=== PATIENT | male | born 1940 | race Caucasian/White ===

== ENCOUNTER → 2018-05-06 | Outpatient (CLI) | payer OTHER ==
[~2018-05-06] MED LIST: COMBIGAN EYE DR10 ML OP; LIPITOR 20 MG T20 M1 PO; LUMIGAN2.5 M1 OP; MEDROLDOSEPACK PO; ZOCOR20 MG PO
== END ==
LOC: CAT 12:27
DX: Z13.6 Encounter for screening for cardiovascular disorders (principal); E78.00 Pure hypercholesterolemia, unspecified; Z82.49 Family history of ischemic heart disease and other diseases of the circulatory system

== ENCOUNTER → 2018-08-06 | Outpatient (CLI) | payer OTHER ==
--- NOTE | 2018-08-06 10:39 | EXE ---
[facility] [place] [address] STRESS ECHOCARDIOGRAM Name: DONALD HUIAINE Alfredo Room #: ALANIS MarlowDrewFreddyDrew#: [id number] ������������� Admission: 08/06/18 ������������� Attend Phys: Mario Workman, Discharge: ��� ������������� ��� Date of : 36 Date of Service: 08/06/18 1039 �� Report #: [id number] �������� ��������������������������������������������[id number] THIS REPORT FOR: //name// APPROVED REPORT Study performed: 08/06/2018 08:02:38 Exam: Stress Echocardiogram Indication: Elevated calcium score, LBBB Patient Location: Out-Patient Stress Nurse: Berta Sheth RN Status: routine Ht: 6 ft 1 in HR: 67 bpm BP: 140/90 mmHg Medical History Medications: Simvastatin Allergies: No known drug allergies Cardiac Risk Factors: Hyperlipidemia Procedure The patient underwent an Exercise Stress Test using the Jon Protocol. Blood pressure, heart rate, and EKG were monitored. An Echocardiogram was performed by product development technician in four stages in quad fashion. At peak stress, four selected images were obtained and placed side by side with resting images for comparison. Stress Test Details Stress Test: Exercise stress testing was performed using a Jon protocol. HR Resting HR: 67 bpm Max Heart Rate (APMHR): 140 bpm Max HR Achieved: 131 bpm Target HR (85% APMHR): 119 bpm % of APMHR: 93 Recovery HR: 84 bpm HR response to stress: Normal HR response to stress BP Resting BP: 140/90 mmHg Max BP: 200/90 mmHg Recovery BP: 160/90 mmHg BP response to stress: Normal blood pressure response to stress. ECG [facility] [address] [place] [address] STRESS ECHOCARDIOGRAM Name: EZLUCINA VALDEZ Alfredo Room #: [facility] KashmirDrewFreddyDrew#: [id number] ������������� Admission: 08/06/18 ������������� Attend Phys: Mario Workman, Discharge: ��� ������������� ��� Date of : 36 Date of Service: 08/06/18 1039 �� Report #: [id number] �������� ��������������������������������������������[id number] Resting ECG: LBBB Clinical Reason for Termination: Maximal effort, right knee pain Stress Symptoms: Knee pain Exercise duration: 2 min 33 sec Highest Stage Achieved: Stage 1: 1.7 mph at 10% grade. Exercise capacity: 4.8 METs Pre-Stress Echo The resting Echocardiogram showed normal left ventricular contractility with an estimated Ejection Fraction of about 50%. Mild to moderate MR, mild TR. Paradoxical septal motion due to conduction abnormality. Post-Stress Echo The stress Echocardiogram showed normal left ventricular contractility with an estimated Ejection Fraction of about 50-55%. Other Information Study Quality: Adequate ��������������������������������������������� <ELECTRONICALLY SIGNED> ���������������������������������������� By: Mario Workman MD, [facility] ��������������������������������������������� 08/06/18 1039 1039 1039 Mario Workman MD, FACC /INF
== END ==
LOC: CV 07:31 → ULTRA 09:30 → CV 09:36
DX: I65.23 Occlusion and stenosis of bilateral carotid arteries (principal); E78.5 Hyperlipidemia, unspecified; I44.7 Left bundle-branch block, unspecified

== ENCOUNTER → 2019-06-11 | Outpatient (CLI) | payer OTHER ==
[~2019-06-11] MED LIST changes: +ASA81BEC PO; +BISOPROLOL FUMAR5 MG PO; +BUPROPION HCL100 MG PO; +BUPROPION XL300 MG PO; +CALCIUM CARBON200 M1 PO; +ELIQUIS5 MG PO; +RAYOS5 MG PO
== END ==
LOC: SJCVC 13:31
DX: I44.7 Left bundle-branch block, unspecified (principal); R94.31 Abnormal electrocardiogram [ECG] [EKG]; I48.91 Unspecified atrial fibrillation; R93.1 Abnormal findings on diagnostic imaging of heart and coronary circulation; E78.5 Hyperlipidemia, unspecified; D68.59 Other primary thrombophilia; I65.23 Occlusion and stenosis of bilateral carotid arteries; I10 Essential (primary) hypertension; Z87.891 Personal history of nicotine dependence; Z79.899 Other long term (current) drug therapy; Z79.82 Long term (current) use of aspirin

== ENCOUNTER → 2019-06-12 | Outpatient (CLI) | payer OTHER ==
[~2019-06-12] MED LIST changes: -ASA81BEC PO; -BISOPROLOL FUMAR5 MG PO; -BUPROPION HCL100 MG PO; -BUPROPION XL300 MG PO; -CALCIUM CARBON200 M1 PO; -ELIQUIS5 MG PO; -RAYOS5 MG PO
== END ==
LOC: SJCVCIMAG 08:59
DX: I34.0 Nonrheumatic mitral (valve) insufficiency (principal); R93.1 Abnormal findings on diagnostic imaging of heart and coronary circulation; I48.91 Unspecified atrial fibrillation

== ENCOUNTER → 2019-06-15 | Outpatient (CLI) | payer OTHER | LOC: SJCVCIMAG 07:58 | DX: I25.89 Other forms of chronic ischemic heart disease (principal); I48.91 Unspecified atrial fibrillation; I25.10 Atherosclerotic heart disease of native coronary artery without angina pectoris; Z79.899 Other long term (current) drug therapy; Z86.73 Personal history of transient ischemic attack (TIA), and cerebral infarction without residual deficits; Z87.891 Personal history of nicotine dependence ==

== ENCOUNTER → 2019-06-23 | Outpatient (CLI) | payer OTHER ==
[~2019-06-23] VITALS: Ht 185.4 cm; Wt 98.0 kg
[~2019-06-23] MED LIST changes: +ASA81BEC PO; +BISOPROLOL FUMAR5 MG PO; +BUPROPION HCL100 MG PO; +BUPROPION XL300 MG PO; +CALCIUM CARBON200 M1 PO; +ELIQUIS5 MG PO; +RAYOS5 MG PO
[2019-06-23 07:36] LABS: HEMATOCRIT 42.9 % (42.0-52.0); HEMOGLOBIN 14.1 gm/dL (14.0-18.0); MCH 31.1 pg (26.0-34.0); MCHC 32.9 g/dL (28.0-37.0); MCV 94.6 fL (80.0-100.0); RBC 4.53 mil/uL (4.50-6.00); RDW 14.8 % (10.5-14.5); WBC 6.4 thou/uL (4.0-11.0)
[2019-06-23 07:38] VITALS: BP 119/68
[2019-06-23 07:43] LABS: CALCIUM 9.7 mg/dL (8.5-10.1); POTASSIUM 4.4 mmol/L (3.5-5.1)
--- NOTE | 2019-06-23 08:29 | EKG ---
[facility] [place] [address] ELECTROCARDIOGRAM REPORT Name: EZLUCINA Alfredo Room #: [facility]#: [id number] Admission: 06/23/19 Attend Phys: Mario Workman MD, Discharge: Date of : 36 Report #: [id number] THIS REPORT FOR: cc: Roni Harmon MD [facility] FACE Roni Harmon MD FAA FACE Mando Theodore MD [facility] THIS REPORT FOR: //name// [facility] Test Date: 2019-06-23 Test Time: 07:25:08 Pat Name: LUCINA HUI Department: Room: Gender: Bi Developer: [facility] : 1940 Requested By: Mario Workman Order Number: [id number] MD: Mando Theodore Measurements Intervals [place] Rate: 58 P: 45 [place]: 172 QRS: -16 QRSD: 154 T: 162 QT: 433 QTc: 426 Interpretive Statements Sinus bradycardia Left bundle branch block Compared to ECG 12/19/2014 23:46:58 No significant changes Electronically Signed On 06-23-2019 8:28:23 CDT by Mando Theodore [email or web address] <ELECTRONICALLY SIGNED> By: Mando Theodore MD, [facility] 06/23/19 0828 4 Mando Theodore MD, [facility] /EPI
--- NOTE | 2019-06-23 12:52 | CATHLAB ---
[facility] [address] [place] [address] INVASIVE PROCEDURE REPORT Name: LUCINA HUI Room #: ALANIS DumontDrew#: [id number] Admission: 06/23/19 Attend Phys: Mario Workman MD, Discharge: Date of : 36 Report #: [id number] THIS REPORT FOR: cc: Roni Harmon MD, FAAFP FACE Roni Harmon MD FAA FACE Mario Workman MD [facility] ~ APPROVED REPORT Study performed: 06/23/2019 09:13:34 Patient Details Patient Status: Out-Patient Room #: The patient is a 79 year-old male Event Personnel Mario Workman Power Operator, Kayla Rome RN RN, Orlin Glass RTR Shravan Mccloud Sherra RTR Monitor, Kaela Meng Laboratory Equipment Cleaner, Naa Liz RTR, CELINE Laboratory Equipment Cleaner Procedures Performed Art Access - R femoral artery* Left Heart Cath w/or w/o Coronaries [id number] [facility] FFR 5260086 FFR Aortogram Abdominal Peripheral Angio 570334 74200 Initial Mod Sed Same Phys/QHP Gr5y 115011 55231 Mod Sed Same Phys/QHP Ea 363766 Hemostasis w/ Mynx Indication Chest pain Procedure Narrative The Right Groin^ was infiltrated with 1% Lidocaine subcutaneous anesthesia. A PINNACLE 6FR Sheath #[id number] sheath was inserted into the RFA^. Coronary angiography was performed using coronary diagnostic catheters. The right coronary system was accessed and visualized with a JR4 catheter. The left coronary system was accessed and visualized with a JL4 catheter. The left ventricle was accessed and visualized with a PIGTAIL catheter. Left ventriculogram was performed in 30 degree projection. An aortogram of the abdominal aorta was performed. Closure device was deployed with a 6 Fr MYNXGRIP 6/7F #[id number]. The patient tolerated the procedure well and there were no complications associated with the procedure. There was no hematoma. FFR .92 Intraoperative Conscious Sedation Sedation start time: 953 Case end Time: 1041 [facility] [address] [place] [address] INVASIVE PROCEDURE REPORT Name: EZLUCINA Alfredo Room #: [facility]#: [id number] Admission: 06/23/19 Attend Phys: Mario Workman, Discharge: Date of : 36 Report #: [id number] Fentanyl 100 mcg Versed 2 mg Fluoro Time: 5.25 minutes Dose: DAP 6406.70 cGycm2 791 mGy Contrast Type and Amount: Omnipaque 150 ml Hemodynamics The aortic pressure is 122/55 mmHg with a mean of 71 mmHg. The left ventricular pressure is 129/8 mmHg with a mean of mmHg. The left ventricular end diastolic pressure is 24 mmHg. Conclusion #1. Normal left ventricular size and systolic function EF 55%. #2 abdominal aortogram revealing no evidence of aneurysm bilateral renal arteries are mildly diseased. Brisk flow. #3 left main with mild disease giving rise to LAD and circumflex #4 the LAD is proximal calcification 30% irregularity and then a mid vessel eccentric lesion of 70 to 75% at a second diagonal takeoff. The stent extends around the apex mildly diseased. FFR performed of this mid LAD lesion was 0.92 we will continue to treat medically. #5 circumflex OM is a large dominant system or anatomically codominant but is extensive distribution with minimal irregularity. #6 a codominant RCA is smaller in caliber. The mid distal PDA essentially occludes. Although this is predominantly filled via the left system. Recommendations and plan: Continue aggressive risk factor modification. Will follow that mid LAD lesion with stress testing serially. Also looking for symptomatology. FFR not physiologically significant lesion at this time. <ELECTRONICALLY SIGNED> By: Mario Workman MD, FACC 06/23/19 1251 1251 125 Mario Workman MD, FACC /INF
== END | disposition home or self-care (01) ==
LOC: CATH 06-17 10:33
PROVIDERS: Internal Medicine Cardiovascular Disease
DX: R07.9 Chest pain, unspecified (principal); I25.10 Atherosclerotic heart disease of native coronary artery without angina pectoris; E78.5 Hyperlipidemia, unspecified; I48.91 Unspecified atrial fibrillation; I10 Essential (primary) hypertension; F32.9 Major depressive disorder, single episode, unspecified; F41.9 Anxiety disorder, unspecified; Z98.890 Other specified postprocedural states; Z79.899 Other long term (current) drug therapy; Z79.01 Long term (current) use of anticoagulants; Z79.82 Long term (current) use of aspirin

== ENCOUNTER → 2020-08-19 | Outpatient (CLI) | payer OTHER | LOC: SJCVC 09:56 | PROVIDERS: ATTEND Internal Medicine Cardiovascular Disease | DX: R94.31 Abnormal electrocardiogram [ECG] [EKG] (principal); I48.0 Paroxysmal atrial fibrillation; I44.7 Left bundle-branch block, unspecified; R93.1 Abnormal findings on diagnostic imaging of heart and coronary circulation; R53.83 Other fatigue; I25.10 Atherosclerotic heart disease of native coronary artery without angina pectoris; R68.89 Other general symptoms and signs; E78.5 Hyperlipidemia, unspecified; Z87.891 Personal history of nicotine dependence; Z72.89 Other problems related to lifestyle; Z79.899 Other long term (current) drug therapy ==

== ENCOUNTER 2020-11-20 07:48 | Inpatient (IN) | payer OTHER ==
[~2020-11-20] VITALS: Ht 185.4 cm; Wt 92.9 kg
[2020-11-20 07:51] VITALS: BP 135/93
[2020-11-20 08:15] LABS: HEMATOCRIT 40.8 % (42.0-52.0); HEMOGLOBIN 13.4 gm/dL (14.0-18.0); MCH 31.4 pg (26.0-34.0); MCHC 32.9 g/dL (28.0-37.0); MCV 95.5 fL (80.0-100.0); PLATELET COUNT 167 thou/uL (150-400); RBC 4.27 mil/uL (4.50-6.00); RDW 22.1 % (10.5-14.5); WBC 7.9 thou/uL (4.0-11.0)
[2020-11-20 08:30] LABS: APTT 25.5 Seconds (24.5-32.8); INR 1.04; PROTIME 11.3 Seconds (10.5-12.1)
[2020-11-20 08:42] LABS: ABSOLUTE NEUTROPHILS 5.9 thou/uL (1.4-8.2); ANISOCYTOSIS 2+; PLATELET ESTIMATE NORMAL
[2020-11-20 08:50] LABS: CALCIUM 6.8 mg/dL (8.5-10.1); CREATININE 1.2 mg/dL (0.7-1.3); POTASSIUM 3.8 mmol/L (3.5-5.1)
[2020-11-20 09:00] LABS: ALBUMIN 2.5 g/dL (3.4-5.0); TOTAL BILIRUBIN 0.4 mg/dL (0.2-1.0)
[2020-11-20 11:59] VITALS: BP 94/55
[2020-11-20 12:10] VITALS: BP 125/70
[2020-11-20 12:20] LABS: URINE BILIRUBIN NEGATIVE (Negative); URINE BLOOD 3+ (Negative); URINE CLARITY CLEAR; URINE COLOR YELLOW; URINE GLUCOSE-RANDOM* NEGATIVE (Negative); URINE KETONES NEGATIVE (Negative); URINE LEUKOCYTES-REFLEX TRACE (Negative); URINE NITRITE-REFLEX NEGATIVE (Negative); URINE PROTEIN (DIPSTICK) TRACE (Negative); URINE UROBILINOGEN 0.2 E.U./dl (0.2-1.0)
[2020-11-20 12:29] VITALS: BP 105/62
[2020-11-20 12:47] LABS: SQUAMOUS 0-3 Few /LPF (0-3)
[2020-11-20 12:48] LABS: BACTERIA-REFLEX 1-9 Few /HPF (None Seen); CASTS None Seen /LPF (None Seen); CRYSTALS None Seen /LPF (None Seen); URINE RBC 3-10 Few /HPF (NONE SEEN)
--- NOTE | 2020-11-20 16:39 | NUR ---
PT ADMITTED TO ROOM THIS AM. HE IS ALERT ORIENTED X4. DENIES PAIN. RESPIRAITONS ARE NON LABORED. PLEASANT WITH CARE. ON OXYGEN VIA NC AND NO SOB NOTED. WILLC CONT WITH PLAN OF CARE.
[2020-11-20 19:44] VITALS: BP 103/64
--- NOTE | 2020-11-21 00:01 | NUR ---
PT WITH POSITIVE PCR REPORTED. PER PATIENT, HAS BEEN COVID POSITIVE IN THE PAST. THRESHOLD RAN WITH RESULT OF 36.1. PT TO REMAIN OFF ISOLATION ON 2N.
[2020-11-21 04:17] VITALS: BP 134/79
[2020-11-21 05:08] LABS: CALCIUM 7.7 mg/dL (8.5-10.1); CREATININE 1.1 mg/dL (0.7-1.3); POTASSIUM 3.9 mmol/L (3.5-5.1)
--- NOTE | 2020-11-21 07:20 | NUR ---
pt resting quietly in room thru the noc, no c/o pain, vss hr remains nsr, npo with plans for nuc. stress test today, o2 at 3l/nc, gout out break on bilat feet with reness and peeling skin, will con't to monitor per ppoc.
--- NOTE | 2020-11-21 07:29 | EKG ---
[address] [address] ELECTROCARDIOGRAM REPORT Name: LUCINA HUI Room #: 213-[facility] M.R.#: [id number] Admission: 11/20/20 Attend Phys: Mario Workman MD, Discharge: Date of : 36 Report #: [id number] [facility] ED Test Date: 2020-11-20 Test Time: 07:53:18 Pat Name: LUCINA HUI Department: Room: [facility] Gender: M Waterproofer: LUBA : 1940 Requested By: Mookie Bright Order Number: [id number] MD: Ermias Tarango Measurements Intervals [place] Rate: 170 P: 28 [place]: 112 QRS: -27 QRSD: 141 T: 146 QT: 335 QTc: 564 Interpretive Statements AFIB LBBB Compared to ECG 06/23/2019 07:25:08 Sinus bradycardia no longer present Electronically Signed On 11-21-2020 7:29:20 CDT by Ermias Tarango [email or web address] <ELECTRONICALLY SIGNED> By: Ermias Tarango MD, [facility] 11/21/20 0729 0753 0753 Ermias Tarango MD, FACC /EPI
[2020-11-21 08:00] VITALS: BP 130/82
--- NOTE | 2020-11-21 09:17 | 2DMMODE ---
[facility] [address] [place] [address] 2 D/M-MODE ECHOCARDIOGRAM Name: LUCINA HUI Room #: 213-[address] [facility] M.R.#: [id number] Admission: 11/20/20 Attend Phys: Mario Workman MD, Discharge: Date of : 36 Report #: [id number] THIS REPORT FOR: cc: Roni Harmon MD, FAAFP, FACEP, Douglas MD FAAFP FACEP Lammoglia, Francisco J. MD ~ APPROVED REPORT Study performed: 11/20/2020 09:46:12 EXAM: Comprehensive 2D, Doppler, and color-flow Echocardiogram Patient Location: Bedside Room #: ER 8 Status: on-call BSA: 2.15 HR: 71 bpm BP: 82/40 mmHg Other Information Study Quality: Technically Difficult Technically limited study due to inability to position patient. Indications Atrial Fibrillation Bradycardia CAD HLD 2D Dimensions RVDd: 29.18 mm IVSd: 13.11 (7-11mm) LVOT Diam: 20.83 (18-24mm) LVDd: 37.58 mm PWd: 12.46 (7-11mm) Ascending Ao: 37.59 (22-36mm) LVDs: 27.55 (25-40mm) Aortic Root: 36.67 mm IVC: 25.00 mm Volumes Left Atrial Volume (Systole) Single Plane 4CH: 47.67 mL Single Plane 2CH: 45.57 mL LA ESV Index: 23.00 mL/m2 Aortic Valve AoV Peak Gabe.: 1.35 m/s [facility] [address] [address] 2 D/M-MODE ECHOCARDIOGRAM Name: LUCINA HUI Room #: 213-P [facility] [place] .R.#: [id number] Admission: 11/20/20 Attend Phys: Mario Workman, Discharge: Date of : 36 Report #: [id number] AO Peak Gr.: 7.28 mmHg LVOT Max P.62 mmHg LVOT Max V: 0.81 m/s [place] Vmax: 2.04 cm2 Mitral Valve E/A Ratio: 0.8 MV Decel. Time: 260.43 ms MV E Max Gabe.: 0.90 m/s MV A Gabe.: 1.08 m/s MV PHT: 75.53 ms IVRT: 145.33 ms Pulmonary Valve PV Peak Gabe.: 0.73 m/s PV Peak Gr.: 2.12 mmHg Pulmonary Vein P Vein S: 0.63 m/s P Vein A: 0.32 m/s P Vein D: 0.40 m/s P Vein A Dur.: 117.6 msec P Vein S/D Ratio: 1.58 Tricuspid Valve TR Peak Gabe.: 2.59 m/s RAP Estimate: 15.00 mmHg TR Peak Gr.: 26.78 mmHg PA Pressure: 42.00 mmHg Left Ventricle The left ventricle is normal size. There is normal LV segmental wall motion. Mild concentric left ventricular hypertrophy. Left ventricular systolic function is borderline. LVEF is 50%. Mild diastolic dysfunction is present (impaired relaxation pattern). Right Ventricle The right ventricle is normal size. The right ventricular systolic function is normal. Atria The left atrium size is normal. The right atrium size is normal. Aortic Valve The aortic valve is normal in structure. No aortic regurgitation is present. There is no aortic valvular stenosis. Mitral Valve Mild mitral annular calcification. Mild to moderate mitral [facility] [place] [address] 2 D/M-MODE ECHOCARDIOGRAM Name: LUCINA HUI Room #: 213-P [facility] [place] .R.#: [id number] Admission: 11/20/20 Attend Phys: Mario Workman, Discharge: Date of : 36 Report #: [id number] regurgitation. No evidence of mitral valve stenosis. Tricuspid Valve The tricuspid valve is normal in structure. Moderate tricuspid regurgitation. PAP is estimated at 42 mmHg. Pulmonic Valve Pulmonic valve is not well visualized. Great Vessels The aortic root is normal in size. IVC is dilated and collapses <50% with inspiration. Pericardium There is no pericardial effusion. <Conclusion> The left ventricle is normal size. Mild concentric left ventricular hypertrophy. There is normal LV segmental wall motion. LVEF is 50%. The aortic valve is normal in structure. Mild mitral annular calcification. Mild to moderate mitral regurgitation. The tricuspid valve is normal in structure. Moderate tricuspid regurgitation. PAP is estimated at 42 mmHg. Pulmonic valve is not well visualized. The aortic root is normal in size. There is no pericardial effusion. <ELECTRONICALLY SIGNED> By: Maninder Arriola MD 11/21/20915 5 5 Maninder Arriola MD /INF
[2020-11-21 12:05] VITALS: BP 141/85
[2020-11-21 15:06] VITALS: BP 134/86
[2020-11-21 16:00] VITALS: BP 114/62
--- NOTE | 2020-11-21 18:17 | NUR ---
RN ASSUMED PT'S CARE AT 0700AM, PT IS A&OX4, PT'S VS ARE STABLE, PT HAS DONE HIS NM CARDIAC STRESS TEST TODAY, PT DENIES PAIN AND SOB BY THIS TIME, CARDIAC DR HAS SEEING PT, PT'S TEST RESULT IS NORMAL, PT MAY DC TO HOME TOMORROW.
[2020-11-21 20:08] VITALS: BP 131/89
[2020-11-22 01:15] VITALS: BP 114/62
--- NOTE | 2020-11-22 01:16 | NUR ---
TEST CAR DRIVER called for tachycardia. See TEST CAR DRIVER flowsheet.
--- NOTE | 2020-11-22 01:19 | NUR ---
PATIENTS CARES WERE ASSUMED AT SHIFT CHANGE. PATIENT ASSESSED AND MEDS WERE NOT PASSED DUE TO NONE ORDERED. ROUNDS WERE MADE. AT 2354 HEART RATE JUMPED TO 160 AND STAYED FOR TEN MINUTES. CHECKED ON THE PATIENT AND HE WAS SLEEPING, NOT UP TO THE BATHROOM. WITHIN A FEW MINUTES HIS HEART RATE JUMPED TO 200 AND A RATE TEAM WAS CALLED. DOCTOR MARLENA WAS CALLED AND ORDERS WERE GIVEN AND CARRIED OUT. ORDER WAS CARDIZEM PROTOCAL, NO BOLUS GIVEN. TO FOLLOW DIRECTIOS UNTIL HEART RATE IS 150 OR LESS. APPROX 2300 HEART RATE DID RECOVER TO 79 TO 88. CARDIZEM TURNED DOWN TO 5. WILL CONTIUE TO MONITOR.
[2020-11-22 04:29] VITALS: BP 97/61
[2020-11-22 07:40] VITALS: BP 107/64
--- NOTE | 2020-11-22 10:13 | EKG ---
[address] [address] ELECTROCARDIOGRAM REPORT Name: LUCINA HUI Room #: 213[facility] M.R.#: [id number] Admission: 11/20/20 Attend Phys: Mario Workman MD, Discharge: Date of : 36 Report #: [id number] [facility] Test Date: 2020-11-22 Test Time: 00:06:53 Pat Name: LUCINA HUI Department: Room: 213 P Gender: M Public School Teacher: UNKNOWN : 1940 Requested By: Ermias Tarango Order Number: [id number] MD: Ermias Tarango Measurements Intervals [place] Rate: 197 P: 148 NC: 99 QRS: -40 QRSD: 133 T: 176 QT: 279 QTc: 505 Interpretive Statements Atrial fibrillation with rapid ventricular response Left bundle branch block Baseline wander in lead(s) II,III,aVF Compared to ECG 11/20/2020 07:53:18 Atrial fibrillation still present Electronically Signed On 11-22-2020 10:12:31 CDT by Ermias Tarango [email or web address] <ELECTRONICALLY SIGNED> By: Ermias Tarango MD, [facility] 11/22/20 1012 Ermias Tarango MD, [facility] /EPI
[2020-11-22 11:02] VITALS: BP 97/58
[2020-11-22 15:35] VITALS: BP 117/58
[2020-11-22 19:46] VITALS: BP 97/64
[2020-11-23 00:32] VITALS: BP 113/49
[2020-11-23 04:14] VITALS: BP 132/38
--- NOTE | 2020-11-23 07:24 | NUR ---
PATIENTS CARES WERE ASSUMED AT SHIFT CHANGE. PATIENT WAS ASSESSED AND MEDS WERE PASSED.PATIENT HAD A UNEVENTFUL NIGHT THIS SHIFT. PATIENT REPORTED THIS MORNING HE DID SLEEP WELL. PATIENT IS A POSSIBLE DISCHARGE TODAY AND WILL GO HOME WITH A HALTER TYPE MONITOR AND FOLLOW UP WITH DR. SCHULZ.ROUNDS WERE DONE. THE ALARM ON THE BED WAS OFF DUE TO PATIENT IS A INDEPENDENT MALE WITH A STABLE GAITE. PATIENT WAS UP AD HARSHAD IN HIS ROOM WITH BRP'S THE BED IS IN A LOW AND LOCKED POSITION
[2020-11-23 07:30] VITALS: BP 129/99
[2020-11-23] MEDS ORDERED: CARDIZEM CD120 MG PO (08:20)
[2020-11-23] MEDS ORDERED: PACERONE 200 M200 M1 PO (08:20)
[2020-11-23 10:45] VITALS: BP 129/99
--- NOTE | 2020-11-23 11:31 | NUR ---
PT RESTING COMFORTABLTY. DC TODAY AT 1125. PT ASYMPTOMATIC, NO C/O DIZZYNESS, LIGHTHEADNESS. PT AFEBRILE, ADEQUATE UOP, NO BM, APPROPRITE APPETITE. PT AND HAVE BEEN THOUROUGHLY UPDATED AND EDUCATED ON PT CONDITION AND POC. PT PROGRESSED TOWARDS POC. PT DC HOME WITH MAGNETIC DOCTOR FROM [facility].
== END 2020-11-23 13:45 | disposition home or self-care (01) | DRG 177 ==
LOC: ER 07:48 → 2N 08:14 → EROBS 08:14 → 2N 12:13
PROVIDERS: Emergency Medicine; Nurse Practitioner Adult Health; ADMIT Internal Medicine Cardiovascular Disease; ATTEND Internal Medicine Cardiovascular Disease
DX: U07.1 COVID-19 (principal); R65.11 Systemic inflammatory response syndrome (SIRS) of non-infectious origin with acute organ dysfunction; J96.00 Acute respiratory failure, unspecified whether with hypoxia or hypercapnia; I48.91 Unspecified atrial fibrillation; E78.5 Hyperlipidemia, unspecified; F41.9 Anxiety disorder, unspecified; F32.9 Major depressive disorder, single episode, unspecified; N40.0 Benign prostatic hyperplasia without lower urinary tract symptoms; E78.00 Pure hypercholesterolemia, unspecified; I08.1 Rheumatic disorders of both mitral and tricuspid valves; I25.10 Atherosclerotic heart disease of native coronary artery without angina pectoris; I10 Essential (primary) hypertension; Z79.82 Long term (current) use of aspirin; Z79.01 Long term (current) use of anticoagulants; Z79.899 Other long term (current) drug therapy; Z72.89 Other problems related to lifestyle; Z85.46 Personal history of malignant neoplasm of prostate; Z86.16 Personal history of COVID-19
CPT/HCPCS: 10081

== ENCOUNTER → 2021-03-28 | Outpatient (CLI) | payer OTHER ==
[~2021-03-28] MED LIST changes: +CARDIZEM CD120 MG PO; +PACERONE 200 M200 M1 PO
== END ==
LOC: SJCVC 10:05
PROVIDERS: ATTEND Internal Medicine Cardiovascular Disease
DX: R94.31 Abnormal electrocardiogram [ECG] [EKG] (principal); I44.7 Left bundle-branch block, unspecified; I25.10 Atherosclerotic heart disease of native coronary artery without angina pectoris; I48.0 Paroxysmal atrial fibrillation; R06.00 Dyspnea, unspecified; E78.5 Hyperlipidemia, unspecified; I10 Essential (primary) hypertension; I34.0 Nonrheumatic mitral (valve) insufficiency; Z87.891 Personal history of nicotine dependence; Z72.89 Other problems related to lifestyle; Z79.899 Other long term (current) drug therapy; Z86.16 Personal history of COVID-19